=== PATIENT | male | born 1990 | race Caucasian/White ===

== ENCOUNTER → 2021-12-13 07:46 | Outpatient (CLI) | payer BC, SELFPAY ==
--- NOTE | ~2021-12-13 | US_ITS ---
EXAMINATION: US abdomen complete DATE: 12/13/2021 08:10 INDICATION: Hepatic steatosis TECHNIQUE: Multiple grayscale and Doppler ultrasound images of the abdomen were obtained. COMPARISON: 05/17/2018 FINDINGS: The head and body of the pancreas are normal. The pancreatic tail is obscured by bowel gas. The liver demonstrates increased echogenicity, heterogenous echotexture, and decreased through trans mission. No surface nodularity. Normal hepatopetal flow in the main portal vein. The gallbladder is n ormal with no abnormal wall thickening, pericholecystic fluid or stones. The normal common bile duct measures 5 mm. There was no sonographic Bowden sign. The visualized portions of the aorta and inferio r vena cava are normal. The right kidney measures 11.5 x 5.4 x 5.2 cm. The left kidney measures 11.5 x 6.5 x 4.6 cm. The kidn eys demonstrate normal parenchymal echogenicity. There is no hydronephrosis. The spleen is normal in appearance and measures 11.9 cm. IMPRESSION: 1. Diffuse hepatic steatosis. Reviewed, dictated and finalized at location A.
== END ==
PROVIDERS: PCP Emergency Medicine; Visit Provider Emergency Medicine
DX: K76.0 Fatty (change of) liver, not elsewhere classified (principal)
CPT/HCPCS: 76700